=== PATIENT | male | born 1975 ===

== ENCOUNTER → 2022-07-21 10:58 | Outpatient (CLI) | payer OTHER, SELFPAY ==
[2022-07-21 11:35] LABS: COVID19 -Nasal RAPID Negative (Negative)
== END ==
PROVIDERS: PCP Student in an Organized Health Care Education/Training Program; Referring Provider Orthopaedic Surgery Orthopaedic Surgery of the Spine; Visit Provider Orthopaedic Surgery Orthopaedic Surgery of the Spine
DX: Z20.822 Contact with and (suspected) exposure to COVID-19 (principal)
CPT/HCPCS: 87635; C9803

== ENCOUNTER 2022-07-24 10:20 | Inpatient (IN) | payer OTHER, SELFPAY ==
[2022-07-19 11:59] VITALS: BMI 34.7
[2022-07-24] VITALS (12 sets, daily range): BP systolic 117–161; BP diastolic 72–96; PULSE 67–106; RESP 9–20; TEMP 35.4–36.5; O2SAT 64–100; BMI 34.7
[2022-07-24] MEDS: LACTATED RINGERS 1,000 ML 42 ML IV ×2 (11:26→14:19)
--- NOTE | 2022-07-24 12:19 | PM.PREOP ---
Pre-operative Note COVID-19 COVID-19 status: Negative Result date/Date tested (Pos, Neg/Pending): 07/23/22 Criteria for continued procedure: Expected advancement of disease process, Possibility delay results in more complex future surgery or treatment, Increased loss of function, Continuing or worsening of significant or severe pain, Deterioration of the patient's condition or overall health and Delay expected to result in less-positive ultimate med/surg outcome Interval Note History & Physical reviewed/Exam performed by Physician: Yes Changes to H&P: No
[2022-07-24] MEDS: CEFAZOLIN 2 GM/100 ML PREMIX 100 ML IV ×2 (13:10→23:26)
--- NOTE | 2022-07-24 13:47 | SUR.OPER ---
Prone on spine table, head in foam head support, padded chest and pelvic supports, gel pad at knees, lower legs supported by pillows; nipples, genitalia and toes free of pressure, gel pad placed between heels, arms secured on foam padded arm boards at <90 degrees abduction. Tape over blanket at thigh secured to table.
[2022-07-24] MEDS: BUPIVACAINE 0.25% (PF) 60 ML, EPINEPHrine 0.3 MG INJ (14:24)
[2022-07-24] MEDS: BUPIVACAINE LIPOSOME 266 MG/20 ML VIAL INJ (15:19)
--- NOTE | 2022-07-24 15:32 | DI.RAD.S_ITS ---
PROCEDURE: XR LUMBAR SPINE 2-3V INDICATIONS: L5-S1 TLIF TECHNIQUE: 2 intraoperative fluoroscopic images obtained. COMPARISON: None. FINDINGS: Two intraoperative fluoroscopic images obtained from L5-S1 fusion. IMPRESSION: Intraprocedural fluoroscopy was provided for guidance and anatomical localization. Please see the procedure report for further details. Dictated by: Kyaw King M.D. on 07/24/2022 at 17:04 Approved by: Kyaw King M.D. on 07/24/2022 at 17:05
--- NOTE | 2022-07-24 15:33 | P.OP_ITS ---
Operative Date/Time/Diagnoses Date of procedure: 07/24/22 Time of procedure: 13:00 Pre-op diagnosis: 1. L5-S1 spondylolisthesis 2. L5-S1 spinal stenosis with radiculopathy Post-op diagnosis: same Procedure & Clinicians Procedure: 1. L5-S1 Postero-lateral and posterior interbody fusion 2. L5-S1 interbody cage placement. 3. L5-S1 decompressive laminectomy with bilateral facetecomies 4. L5-S1 Posterior non-segmental instrumentation 5. [place] of bone marrow from iliac crest 6. Utilization of microsurgical technique and operating microscope Same procedure as scheduled: Yes Indications: Patient has been having chronic back pain and worsening lumbar radiculopathy. Patient failed multiple conservative management with worsening pain weakness and numbness in his lower extremity as well as severe daily constant back pain. Patient has been having difficulty performing activity of daily living. After discussing risks benefits of treatment options, patient elected proceed with surgery. Surgeon: Ambreen Cesar Risk Lead: Venita Pennington Click Yes if Unassisted: No Anesthesia Type: General Operative Notes Closure Type: primary Specimen(s): none sent Prosthetic devices, grafts, tissues, transplants, or devices: Globus revolve screws, Rise cage Estimated Blood Loss (mL): 50 Blood products transfused: none Procedure in detail: Patient was seen in the preoperative area. Risks and benefits of the surgery was discussed with the patient. Informed consent was obtained from the patient and placed in the chart. Surgical site was marked. Patient was taken to the operative room. General anesthesia was administered. Prophylactic antibiotic was given to the patient less than 30 min before the incision was made. Patient was placed into a prone position on the Alexander table. Patient's back was then prepped and draped in the sterile fashion. Time-out was performed at this time. Using AP and lateral C-arm imaging the interval between L5-S1 was identified and marked on patient's back. A 2 inch incision 2 in from midline was made on the right side first. The fascia was incised in line with skin incision. Globus MARS retractors was placed inside the incision and docked onto the L5 lamina. Using microsurgical technique and operating microscope, a L5 laminectomy and L5- S1 facetectomy was performed using a Kerrison rongeur. Patient was found have severe neural foraminal stenosis and required a total facetectomy for decompr ession which rendered L5-S1 grossly unstable and required a fusion procedure at the same time. The disc space at L5-S1 was identified. And a total diskectomy was performed at L5-S1 level. The endplates were decorticated using a rasp and shaver. The total diskectomy and decortication was performed at L5-S1 level in order to to accomplish a L5-S1 fusion. The local bone from the laminectomy and facetectomy was saved for local bone grafting. After the total diskectomy and decortication was completed, Trifecta bone graft material was combined with local bone that was harvested earlier. At this time, a separate skin is incision was made over the iliac crest. A Jamshidi needle was inserted into the iliac crest through a separate skin incision. 5 cc of bone marrow aspiration was obtained through the separate skin incision using a Jamshidi needle from the iliac crest. The bone marrow aspiration was combined with local bone and the Trifecta bone grafting material. The bone grafting material was placed into the L5-S1 interbody space along with a expandable cage. The cage was expanded to its maximum height using the torque limiting screwdriver. At this time a mirror image incision was made on the left side. The fascia was incised in line with the skin incision. Globus MARS retractor was inserted and docked onto the L5-S1 posterolateral gutter. Using the power drill, posterior-l ateral decortication was performed at L5-S1 level until bleeding cortical bone was identified. The remaining bone grafting material was placed into the L5-S1 posterior lateral gutter he order to accomplish posterolateral fusion at the L5- S1 level. Using the double C-arm technique, pedicle screws were placed into the L5-S1 pedicles bilaterally. This was done by placing the Jamshidi needle into the pedicles, then placing the guidewires over the Jamshidi needle, and finally placing the cannulated screws over the guidewires bilaterally. After the pedicle screws were placed, 2 titanium rods was locked into the heads of the pedicle screws using locking caps and torque limiting screwdriver. Thready reducers were used to reduce the patient's spondylolisthesis. Near anatomic reduction was accomplished using the hardware and the reduction tool and maintained in a stable position using the hardware placed. After all the hardware was placed, and confirmed with AP and lateral C-arm imaging, the wound was then irrigated with sterile normal saline and packed with Ray-Drake gauze for 3 min to accomplish hemostasis. After the gauze was removed the deep fascia was closed with #1 Vicryl suture. The subcutaneous layer was closed with 2-0 Vicryl. The skin was closed with skin everton. Patient tolerated the procedure well. There were no complications. Complications: none Post-operative Condition: stable Disposition: PACU Plan for aftercare: Admit to inpatient hospital
[2022-07-24] MEDS: OXYCODONE/ACETAMINOPHEN 5/325 TABLET 1 TAB PO (16:18)
[2022-07-24] MEDS: HYDROMORPHONE 0.5 MG INJ IV (18:18)
[2022-07-24] MEDS: hydrOXYzine pamoate 25 MG CAPSULE PO ×2 (18:18→23:24)
[2022-07-24] MEDS: ACETAMINOPHEN 325 MG TABLET 650 MG PO (19:09)
[2022-07-24] MEDS: SENNOSIDES 8.6 MG TABLET 17.2 MG PO (20:32)
[2022-07-24] MEDS: DOCUSATE 100 MG CAPSULE PO (20:32)
[2022-07-24] MEDS: GABAPENTIN 300 MG CAPSULE PO (20:32)
[2022-07-24] MEDS: OXYCODONE IR 5 MG TABLET 10 MG PO ×2 (20:32→23:24)
[2022-07-24] MEDS: methocarbamoL 500 MG TABLET 750 MG PO (20:33)
[2022-07-25 00:15] VITALS: BP 146/85; PULSE 110; RESP 18; TEMP 36.9; O2SAT 95
[2022-07-25] MEDS: hydrOXYzine pamoate 25 MG CAPSULE PO (03:44)
[2022-07-25] MEDS: OXYCODONE IR 5 MG TABLET 10 MG PO ×2 (03:44→08:45)
[2022-07-25 04:16] VITALS: BP 129/88; PULSE 94; RESP 17; TEMP 36.8; O2SAT 98
[2022-07-25] MEDS: CEFAZOLIN 2 GM/100 ML PREMIX 100 ML IV (04:55)
[2022-07-25 07:44] VITALS: BP 150/87; PULSE 88; RESP 18; TEMP 35.9; O2SAT 99
--- NOTE | 2022-07-25 08:00 | P.PN_ITS ---
Subjective Subjective Date Patient Seen: 07/25/22 Time Patient Seen: 08:00 Interval history: Pain is mild. Denies fever or chills. No nausea or vomiting. Exam Vital Signs (past 8 hours): - 07/25/22 00:15 07/25/22 04:16 07/25/22 07:44 Temperature 98.4 F 98.2 F 96.7 F L Pulse Rate 110 H 94 H 88 Respiratory Rate 18 17 18 Blood Pressure 146/85 H 129/88 150/87 H Pulse Oximetry 95 98 99 Oxygen Flow Rate 0 0 0 Oxygen Delivery Method Room Air Oxygen Flow Rate 0 Narrative Exam Narrative: 47-year-old male resting comfortably in bed in no apparent distress. Motor functions intact bilateral lower extremities. Sensation grossly intact to light touch bilateral lower extremities. Const General: cooperative and comfortable Nutritional Appearance: average body habitus Orientation: alert [facility] Medical History Arthritis Congenital single kidney Diverticulosis Episode of syncope (~07/2022) Fatty liver HTN (hypertension) Spinal stenosis Surgical History Hx of colonoscopy Hx of LASIK Social History household members: none Smoking Status: Never smoker alcohol intake: former Assessment & Plan Post-op Postoperative Procedures: Procedures Operation Date: 07/24/22 12:45 Actual Procedure Side Surgeon p L5-S1 TLIF Ambreen Cesar MD Postoperative day: 1 Postoperative status: doing well Postoperative status narrative: Postop day 1 status post L5-S1 posterior lateral and posterior interbody fusion Postoperative plan: routine post-op care Postoperative plan narrative: Multimodal pain management Mobilize with physical therapy, limit bending, twisting, lifting Disposition likely home today or tomorrow after physical therapy. Quality VTE Deep Vein Thrombosis/Pulmonary Embolism Present on Admission: No
--- NOTE | 2022-07-25 08:30 | CM.DANOTE ---
DCP Assessment: PCP confirmed: Luis Fernando Payor confirmed: Chele Pt is a 47 y.o. M who presented to the hospital for a scheduled TLIF surgery with Dr. Cesar. Pt admitted to the acute care floor for further management and evaluation of surgical procedure. DCP met with pt this morning to discuss discharge needs. Pt sitting up in bed eating breakfast. DCP introduced herself and role. Pt lives in [place] and is independent at baseline. Pt emergency contact is pt mother, Laney. Pt states that he is currently unemployed but can get around just fine. Pt states KAYLIN Rosenbaum was in this morning and discussed with the potential to discharge later today. DCP updated white board. Instructed to call. Pt thankful for the discussion. P: Pt to work with PT/OT this morning for a consult. Once medically cleared for discharge, pt to discharge home via family POV. Gabriela Bacon RN/KAREN Discharge Planning/Care Management CM Discharge Assessment Start: 07/25/22 08:29 Freq: Status: Active Protocol: Document 07/25/22 08:29 TIMO (Rec: 07/25/22 08:30 [id number]) Discharge Planning Assessment Assigned Heavy Equipment Plumbing Supervisor Gabriela Bacon RN/KAREN Advance Directives? No History Provided By Patient,Medical Record Prior Living Arrangements House Household Members none Type of transporation used prior to Drives own vehicle admit Independent with ADL's Yes Is patient alert and oriented? Yes Caregiver for Another No Discharge Plan Home Transportation Arrangement Family POV Referrals Initiated None needed Additional Comment At this time. Pt to work with PT/OT to determine baseline level of activity. Whiteboard Updated in Patient Room with Yes name and ext. # of Heavy Equipment Plumbing Supervisor Comment Instructed to call Review Status In Process Please Provide Date Initial DC 07/25/22 Assessment Was Performed Next Review Type Continued Stay Review Pre-Anesthesia Assessment Start: 07/19/22 11:59 Freq: Status: Complete Protocol: Document 07/19/22 11:59 CAB (Rec: 07/19/22 13:48 CAB [id number]) Pre-Anesthesia Assessment PAC Comment Pt saw Cardiology 07/19/22, ECG from visit scanned to record Preferred Name Aravind Patient Information Reviewed Via Phone Assessment Assessment Completed With Patient Diagnostic Results BMP/CMP,CBC,EKG Comment [place] labs/ECG scanned, COVID screen @ 07/21/22 Primary Care Provider Romain Gould Seen Specialist in Last 12 Months Yes Specialist Seen Release Specialist,Orthopedist,Other Comment Neuro @ [facility] Primary Language Mexican Tree Faller Required No Height 167.64 cm Weight 97.522 kg Body Mass Index (BMI) 34.7 Hearing Ability Normal Visual Impairment No Limitations Visual Assist None Dentition Type Teeth, Natural Present Barriers to Learning None Hx Anesthesia Reactions No Hx Family Anesthesia Reaction No Hx Malignant Hyperthermia No Hx Blood Transfusions No Anesthesia Review Requested No Processor Helper No alcohol intake former Smoking Status Never smoker Substance Use Type marijuana Comment Pt advised not to smoke marijuana 24 hours prior to surgery Pain Present Pain Reported Musculoskeletal Symptoms Abnormal Gait,Back Pain,Muscle Weakness,Numbness,Radiating Pain into Limb History of Falling (Recent or History of No ) Patient is completely paralyzed or No completely immobile Mental Status Oriented to own ability Is patient on oxygen? No Does patient have PAGE/SOB No Hx Sleep Apnea No Currently Taking a Beta Harjinder No Can You Climb a Flight of Stairs Without Yes SOB Hx Chest Pain No Hx SOB No Hx Syncope or Dizziness Yes: Single episode of syncope , neuro eval negative Anti-Coagulant Therapy No Has a Release Specialist Yes: Visit 07/19/22 r/t syncopal episode Release Specialist name Dr. Ortega Cardiac Testing No Hx Pacemaker/ICD No Pacemaker Rep Required? No Comment Cardiac record scanned Diet Type At Home Regular dysphagia No Urinary Catheter Present No Hx Urinary Self Catheterization No Diabetes No Hx Drug Resistant Organism No Presence of External or Internal Medical No Devices Have you had any close contact with No someone diagnosed with COVID-19? Received a COVID vaccine? Yes Received all doses? No Marital Status Single Lives With none Prior Living Arrangements House Number of Floors (Floors) Two Floors Support System Parent(s) Does the Patient Have Assistance After Yes: Pt will stay with Mom to Surgery assist withi care at [place] Patient Discharge Plan Description Other Comment Pt advised overnight length of stay per surgeon Feels Safe in Current Environment Yes Been Physically Hurt or Threatened By a No Person in Current Environment Do you have thoughts of harming yourself None or others? Are you currently considering suicide? No Do you have a plan to hurt yourself or No Plan others? Do You Have Any Spiritual Beliefs That No May Affect Your HC Choices? Do You Have Any Cultural Practices That No May Affect Your HC Choices? Comment Atheist Who Can We Speak to About Patient's Care Family, friends Identifying Code for Release of Patient Declines to issue Information Health Care Proxy/Next of Kin Laney Coulter) Health Care Proxy Emergency Contact Name Laney Coulter) Emergency Contact Advance Directives? No Power of High Density Press Operator No PAC Instructions Durable medical equipment, Medications to take/avoid, Nasal antibiotic,No ETOH/ petroleum product on skin DOS, NPO,Pre-surgical wash,Sensory aids,Sturdy shoes/comfortable clothes,Do not bring valuables and remove jewelry
[2022-07-25 08:40] VITALS: BP 150/87
[2022-07-25] MEDS: DOCUSATE 100 MG CAPSULE PO (08:40)
[2022-07-25] MEDS: GABAPENTIN 300 MG CAPSULE PO (08:40)
[2022-07-25] MEDS: lisinopriL 20 MG TABLET 40 MG PO (08:40)
--- NOTE | 2022-07-25 10:12 | PT.IIE ---
Current Diagnoses Spondylolisthesis, lumbosacral region (07/24/22) Spinal stenosis, lumbosacral region (07/24/22) Surgery Performed Operation Date: 07/24/22 12:45 Actual Procedures p L5-S1 TLIF - Ambreen Cesar MD Surgical History (Last Reviewed 07/25/22 @ 11:02 by Joss Rosenbaum PA-C) Hx of colonoscopy Hx of LASIK Medical History (Last Reviewed 07/25/22 @ 11:02 by Joss Rosenbaum PA-C) Arthritis Congenital single kidney Diverticulosis Episode of syncope (~07/2022) Fatty liver HTN (hypertension) Spinal stenosis Physical Therapy Inpatient Evaluation/Re-Eval M1 PT/OT-IP Prior Functional Status Start: 07/25/22 11:51 Freq: NEEDED Status: Active Protocol: Document 07/25/22 10:12 AB (Rec: 07/25/22 12:02 AB [id number]) Medical Review Prior Functional Status Medical History Reviewed Yes Communication able to make needs known Mobility and Gait pt stated that he is independent with all mobilities and ambulation without AD Social History Household Members none Living Arrangements House Number of Floors (Floors) One Floor Number of Stairs To Enter/Railing? pt plans to go home to his mother's house: home set up info is regarding pt's mother' s house 2 steps L rail ascending to enter the house Home Environment Standard Height Toilet,Tub/ Shower Home Equipment Quad Cane,Straight Cane Employment Status Unemployed M2 PT-IP Current Condition Start: 07/25/22 11:51 Freq: NEEDED Status: Active Protocol: Document 07/25/22 10:12 AB (Rec: 07/25/22 12:02 AB [id number]) Physical Therapy Current Condition Current Condition Evaluation Date 07/25/22 Treatment Diagnosis s/p L5S1 fusion; difficulty in walking Onset Date 07/24/22 M3 PT-IP Subjective Start: 07/25/22 11:51 Freq: NEEDED Status: Active Protocol: Document 07/25/22 10:12 AB (Rec: 07/25/22 12:02 AB [id number]) Subjective Physical Therapy Visit Type Type Initial Evaluation Visit Start Time 10:12 Visit Stop Time 10:50 Total Visit Minutes 38 Number of AIRCRAFT LAUNCH AND RECOVERY TECHNICIAN Visits 0 Physical Therapy Visit Comments Patient Comments agreeable to do PT Therapy Pain Assessment Pain When Pain Assessed At Rest Pain Present Pain Present Pain Reported Location Back Intensity 6 Scale Used Numeric (0 - 10) Pain Behaviors Guarding Pain Management Techniques Apply Cold,Modification of Treatment,Re-positioning, Timing of Activity with Medications M4 PT-IP Mobility and Gait Start: 07/25/22 11:51 Freq: NEEDED Status: Active Protocol: Document 07/25/22 10:12 AB (Rec: 07/25/22 12:02 AB [id number]) PT-Bed Mobility Assessment Rolling Type of Rolling Log Rolling Level of Assist Standby Assistance Supine to Sit Supine to Sit Standby Assistance PT-Transfer Assessment Sit to and From Stand Sit to and from Stand Standby Assistance,1 Person Assistance,Use of Upper Extremities Equipment Transfer Assistive Device Gait Belt,Front Wheeled Walker Orthotic/Prosthetic Devices or Brace: No Transfers Transfer Destination Chair Transfer Technique ambulated Transfer Ability Level of Assist Standby Assistance,1 Person Assistance,Use of Upper Extremities Comments Mobility Comments educated pt regarding back precautions and log roll bed mobility. pt completed supine to sit SBA and cues. completed sit to stand sBA and ambulated to the chair using fWW SBA. educated pt on how to use SPC. completed sit to stand SBA and ambulated towards the stairs using SPC SBA ~ 300 ft. pt completed up/down steps using L rail ascending sBA. pt ambulated back to his room SBA. sat on chair and positioned. call light and table within reach. Gait Assessment Gait Gait Assistance Required: Standby Assistance,1 Person Assist Distance (Feet) 300 Able to Maintain Weight Bearing Status Yes During Gait Assistive Devices Assistive Device Gait Belt,Straight Cane Orthotic/Prosthetic Devices or Brace: No Gait Deviations General Gait Pattern Decreased Stride Length, Decreased Feet Clearance Factors Limiting Gait Function Factors Limiting Gait Function Decreased Activity Tolerance, Decreased Strength,Limited Range of Motion,Pain,Poor Balance Stair Climbing Assessment Evaluation Level of Assist On Stairs Standby Assistance Devices Stair Climbing Assistive Devices Left Railing Technique/Endurance Stair Climbing Direction Ascend and Descend Stair Climbing Technique Step Over Step Number of Steps Climbed 3 Query Text: Stair Climbing Set # Repetitions (reps) 1 PT-Balance Assessment Sitting Balance and Reactions Static Sitting Balance Ability Normal Dynamic Sitting Balance Ability Normal Standing Balance and Reactions Static Standing Balance Ability Good Dynamic Standing Balance Ability Fair Device Used SPC M5 PT-IP Objective Assessments Start: 07/25/22 11:51 Freq: NEEDED Status: Active Protocol: Document 07/25/22 10:12 AB (Rec: 07/25/22 12:02 AB [id number]) Orientation Orientation/Cognition Level of Alertness Alert Orientation Name,Place,Situation Language Function Ability No Deficits Noted Safety Awareness Understands Safety Issues Memory Description No Deficits Noted Gross Range of Motion Lower Extremity ROM Assessment Within Functional Limits Strength Lower Extremity Strength Assessment Within Functional Limits Coordination Assessment Gross Coordination Gross Coordination WNL Sensation Assessment Sensation Gross Sensation WNL Muscle Tone Muscle Tone WNL Yes M6 PT-IP Treatment Start: 07/25/22 11:51 Freq: NEEDED Status: Active Protocol: Document 07/25/22 10:12 AB (Rec: 07/25/22 12:02 AB [email or web address]) Physical Therapy Treatment Education Education Provided Precautions,Weight Bearing Status,Post-Op Packet,Safety M7 PT-IP Assessment and Plan Start: 07/25/22 11:51 Freq: NEEDED Status: Active Protocol: Document 07/25/22 10:12 AB (Rec: 07/25/22 12:02 AB [email or web address]) PT Summary Assessment and Plan Potential Rehabilitation Potential Good Status of Condition at Evaluation Stable Summary Impairments Pain,ROM,Strength,Balance, Cognition,Bed Mobility, Transfers,Gait,Activity Tolerance Assessment Summary pt requiring SBA with mobility using FWW and plans to go to his mother's house upon d/c and pt's mother will assist pt as needed. pt may go home when medically stable. informed pt to use a FWW for outdoor mobility and agreed. stated that his mother will borrow from the [facility]. Goals Bed Mobility Goal Independent Transfer Goal Independent,Cane Gait Goal Independent,Cane Gait Distance 350 Other Goals up/down 2 steps L rail ascending mod I Days to Meet Goals 3 Frequency of Treatment Frequency Of Treatment Twice a Day Treatment Plan Physical Therapy Treatment Plan Bed Mobility Training,Transfer Training,Gait Training, Therapeutic Exercise,Balance Retraining,Post Op Education, Discharge Planning,Hot or Cold Pack,Neuromuscular Re-ed, Coordination Retraining,Manual Therapy Recommendations To Nursing Amount of Assist Needed Standby Assistance Discharge Recommendations PT Discharge Recommendations Home with Assistance Transportation Needs at Discharge Private Vehicle
--- NOTE | 2022-07-25 11:01 | P.DS_ITS ---
History of Present Illness History of Present Illness Date Patient Seen: 07/25/22 Time Patient Seen: 11:01 Chief complaint: Back pain Narrative: See progress note Discharge Providers Provider Date of admission: 07/24/22 10:20 Discharge Date: 07/25/22 Primary care physician: Romain Gould DO Consults: 07/24/22 16:52 Consult to Occupational Therapy Evaluate & Treat Comment: Physician Instructions: Evaluate and treat Consult to Physical Therapy Evaluate & Treat Comment: Physician Instructions: Evaluate and Treat Discharge provider: Joss Rosenbaum PA-C Summary Hospital Course Discharge Diagnosis: 1. L5-S1 spondylolisthesis 2. L5-S1 spinal stenosis with radiculopathy Hospital Course: 1. L5-S1 Postero-lateral and posterior interbody fusion 2. L5-S1 interbody cage placement. 3. L5-S1 decompressive laminectomy with bilateral facetecomies 4. L5-S1 Posterior non-segmental instrumentation 5. [place] of bone marrow from iliac crest 6. Utilization of microsurgical technique and operating microscope Same procedure as scheduled: Yes Indications: Patient has been having chronic back pain and worsening lumbar radiculopathy. Patient failed multiple conservative management with worsening pain weakness and numbness in his lower extremity as well as severe daily constant back pain.? Patient has been having difficulty performing activity of daily living.? After discussing risks benefits of treatment options, patient elected proceed with surgery. Surgeon: Ambreen Cesar Land Acquisition Analyst: Venita Pennington Click Yes if Unassisted: No Anesthesia Type: General Operative Notes Closure Type: primary Specimen(s): none sent Prosthetic devices, grafts, tissues, transplants, or devices: Globus revolve screws, Rise cage Estimated Blood Loss (mL): 50 Patient admitted to the hospital for the above-mentioned procedure. Patient consented to the same. Patient underwent lumbar fusion July 24, 2022. Patient back in his room recovering well as in stable condition. Patient will be discharged home today in stable condition. Status at Discharge Cognitive/behavioral status at discharge: at baseline, oriented Functional status at discharge: uses cane/walker Overall status at discharge: patient is progressing back to baseline Time Spent with Patient Time spent: Less than 30 minutes Exam Vital Signs (past 8 hours): - 07/25/22 04:16 07/25/22 07:44 07/25/22 08:40 Temperature 98.2 F 96.7 F L Pulse Rate 94 H 88 Respiratory Rate 17 18 Blood Pressure 129/88 150/87 H 150/87 H Pulse Oximetry 98 99 Oxygen Flow Rate 0 0 Oxygen Delivery Method Room Air Oxygen Flow Rate 0 Narrative Exam Narrative: See progress note PFSH Medical History Arthritis Congenital single kidney Diverticulosis Episode of syncope (~07/2022) Fatty liver HTN (hypertension) Spinal stenosis Surgical History Hx of colonoscopy Hx of LASIK Social History household members: none Smoking Status: Never smoker alcohol intake: former Discharge Assessment & Plan Assessment and Plan Assessment: Patient progressing as expected Plan of Treatment: Discharge home today in stable condition Discharge Plan Discharge Plan Patient Disposition: Home Discharge orders & Medications Prescriptions: New acetaminophen 325 mg Tablet 650 mg PO Q6HR PRN (Reason: Pain, Mild (1-3)) Qty: 60 0RF docusate sodium 100 mg Capsule 100 mg PO BID Qty: 20 0RF oxycodone 5 mg Tablet 10 mg PO Q3HR PRN (Reason: Pain, Severe (7-10)) Qty: 40 0RF Continued methocarbamol 750 mg Tablet 750 mg PO BEDTIME gabapentin 300 mg Capsule 300 mg PO TID lisinopril 40 mg Tablet 40 mg PO DAILY Follow up/Referrals: Ambreen Cesar MD [Physician] - As previously scheduled (Follow up with Venita Pennington PA-C, on 08/03/2022 @ 3:00 pm at [facility] office in [place].) Romain Gould DO [Primary Care Provider] - Diet/Activity/Treatments Diet: Diet as Tolerated Activity: No deep bending or twisting at the waist. No lifting more than 10 pounds. Cold/Heat Therapy: Heating pad to back as needed for pain. Skin/Wound/Dressing Care Report to your healthcare provider any signs of infection, such as:: chills, fever, night sweats, unusual drainage and unusual redness Dressing: May shower; keep dressing as dry as possible. May remove dressing and replace with clean, dry gauze if it becomes wet inside. No bathing or otherwise soaking incisions. Do not apply any creams, lotions, or ointments to incisions. Visit Report/Discharge Packet Instructions: DI for Prescription Opioid Use, DI for Transforaminal Lumbar Interbody Fusion Stand Alone Forms: Surgery Discharge Discharge Data Primary Care Provider: Romain Gould VTE Deep Vein Thrombosis/Pulmonary Embolism Present on Admission: No
--- NOTE | 2022-07-25 11:35 | PC.NURSE ---
Pt is ready for discharge home with Parent. Has been cleared by PT but is waiting for his ride and to work with OT. IV removed. Went over d/c instructions with Pt -discussed d/c meds, time of last dose, reviewed stroke education, reviewed back precautions, reminded Pt to limit [id number] twisting, no driving while taking narcotics, drink plenty of fluids to prevent constipation or dehydration, reviewed s/s of infection, reminded Pt to not exceed 3000mg of Acetaminophen in 24 hours, and to follow up as directed. Pt denied further questions and will be discharged out via w/c by [facility] to [facility] with his mother and all belongings.
--- NOTE | 2022-07-25 11:57 | OT.IP.EVAL ---
Current Diagnoses Spondylolisthesis, lumbosacral region (07/24/22) Spinal stenosis, lumbosacral region (07/24/22) Surgery Performed Operation Date: 07/24/22 12:45 Actual Procedures p L5-S1 TLIF - Ambreen Cesar MD Past Medical History (Last Reviewed 07/25/22 @ 11:02 by Joss Rosenbaum PA-C) Arthritis Congenital single kidney Diverticulosis Episode of syncope (~07/2022) Fatty liver HTN (hypertension) Spinal stenosis Surgical History (Last Reviewed 07/25/22 @ 11:02 by Joss Rosenbaum PA-C) Hx of colonoscopy Hx of LASIK Occupational Therapy Inpatient Evaluation/Re-Eval M1 PT/OT-IP Prior Functional Status Start: 07/25/22 11:51 Freq: NEEDED Status: Discharge Protocol: Document 07/25/22 10:12 AB (Rec: 07/25/22 12:02 AB [id number]) Medical Review Prior Functional Status Medical History Reviewed Yes Communication able to make needs known Mobility and Gait pt stated that he is independent with all mobilities and ambulation without AD Social History Household Members none Living Arrangements House Number of Floors (Floors) One Floor Number of Stairs To Enter/Railing? pt plans to go home to his mother's house: home set up info is regarding pt's mother' s house 2 steps L rail ascending to enter the house Home Environment Standard Height Toilet,Tub/ Shower Home Equipment Quad Cane,Straight Cane Employment Status Unemployed M1 PT/OT-IP Prior Functional Status Start: 07/25/22 13:38 Freq: NEEDED Status: Active Protocol: Document 07/25/22 11:57 [facility] (Rec: 07/25/22 13:54 [facility] [id number]) Medical Review Prior Functional Status Medical History Reviewed Yes Communication able to make needs known Mobility and Gait pt stated that he is independent with all mobilities and ambulation without AD Pt states would have pain after walking 4 blocks and needing to stop. Activities of Daily Living and IADL's Pt states able to do his ADL needs. Social History Household Members none Living Arrangements House Number of Floors (Floors) One Floor Number of Stairs To Enter/Railing? pt plans to go home to his mother's house: home set up info is regarding pt's mother' s house 2 steps L rail ascending to enter the house Home Environment Standard Height Toilet,Tub/ Shower Home Equipment Quad Cane,Straight Cane Employment Status Unemployed M2 OT-IP Current Condition Start: 07/25/22 13:38 Freq: Status: Active Protocol: Document 07/25/22 11:57 [facility] (Rec: 07/25/22 13:54 [facility] [id number]) Occupational Therapy Current Condition Current Condition Evaluation Date 07/25/22 Treatment Diagnosis S/p L5-S1 TLIF Diagnosis Onset Date 07/24/22 M3 OT- IP Subjective and Pain Start: 07/25/22 13:38 Freq: Status: Active Protocol: Document 07/25/22 11:57 [facility] (Rec: 07/25/22 13:54 [facility] [id number]) OT- Subjective Occupational Therapy Visit Type Type Initial Evaluation Visit Start Time 11:38 Visit Stop Time 11:57 Total Visit Minutes 19 Occupational Therapy Visit Comments Patient Comments Pt agreed to get dressed. Patient/Caregiver Goals To go home. OT Pain Assessment Pain When Pain Assessed At Rest Pain Present Pain Present Pain Reported Location Back Intensity 4 Scale Used Numeric (0 - 10) M4 OT- IP ADL's Start: 07/25/22 13:38 Freq: Status: Active Protocol: Document 07/25/22 11:57 [facility] (Rec: 07/25/22 13:54 [facility] [id number]) OT [id number] Comments OT Self-Feeding Comments Not at meal time. OT ADL-Grooming General Evaluation Grooming Ability Standby Assistance Areas Needing Assistance Retrieving/Set-up of Grooming Items OT ADL-Oral Care General Eval Oral Care Ability Independent Comments Oral Care Comments Pt needing initial education to hinge at his hips to spit to best follow his back precautions. OT ADL-Dressing General Eval Upper Body Dressing Ability Independent Lower Body Dressing Ability Standby Assistance Comments OT Dressing Comments Pt able to use socks aid to assist for his socks, in which pt will benefit from getting a noc technician and sock aid to assist with his LB dressing needs. OT ADL-Toileting Comments OT Toileting Comments Pt able to sit on the toilet and to reach appropriately to be able to wipe. OT ADL-Bathing Comments OT Bathing Comments Pt states not wanting to have his mom be present for his shower and therefore shower chair, hand held shower spray and long handled brush would help with his independence for showering needs. M5 OT- IP IADL's Start: 07/25/22 13:38 Freq: Status: Active Protocol: Document 07/25/22 11:57 [facility] (Rec: 07/25/22 13:54 [facility] [id number]) OT-Instrumental Activities of Daily Living Home Safety Awareness Awareness of Need for Assistance at Home Good Awareness Home Safety Comments Pt mother to assist with his IADl needs. M6 OT- IP Functional Cognition Start: 07/25/22 13:38 Freq: Status: Active Protocol: Document 07/25/22 11:57 [facility] (Rec: 07/25/22 13:54 [facility] [id number]) Cognitive Factors Limiting Selfcare Function Cognitive Ability Level of Alertness Alert Patient Orientation Name,Age,Birthday,Month,Date, Year,Day of Week,Place, Situation Attention Span Ability Capable of Focused Attention, Capable of Sustained Attention Ability to Follow Commands Able to Follow Multi-Step Commands Cognitive Comments Cognitive Assessment Comments Pt intact and able to follow commands for back precautions for ADl and mobility needs. M7 OT- IP Mobility and Balance Start: 07/25/22 13:38 Freq: Status: Active Protocol: Document 07/25/22 11:57 [facility] (Rec: 07/25/22 13:54 [facility] [id number]) OT-Transfer Assessment Sit to and From Stand Sit to and from Stand Standby Assistance Technique Transfer Destination Chair,Toilet Devices Transfer Assistive Devices Gait Belt,Front Wheeled Walker Comments Mobility Comments Pt wanting to use the FWW for mobility needs when asked. Pt states to have his mom get his one from the [employer]. OT- Balance Assessment Sitting Balance and Reactions Static Sitting Balance Ability Normal Dynamic Sitting Balance Ability Good Standing Balance and Reactions Static Standing Balance Ability Good Dynamic Standing Balance Ability Good M8 OT- IP Objective Assessments Start: 07/25/22 13:38 Freq: Status: Active Protocol: Document 07/25/22 11:57 [facility] (Rec: 07/25/22 13:54 [facility] [id number]) OT-Muscle Tone Assessment Muscle Tone WNL Yes M9 OT- IP Assessment and Plan Start: 07/25/22 13:38 Freq: Status: Active Protocol: Document 07/25/22 11:57 [facility] (Rec: 07/25/22 13:54 [facility] [id number]) OT Summary Assessment and Plan Potential Rehabilitation Potential Good Analytic Complexity at Evaluation Low Summary OT Impairments Pain,Balance,Functional Mobility,Dressing,Bathing, Shower Transfers Progress Towards Goals Progressing Toward Goals Assessment Summary Pt low complexity and main barriers are pain, needing assist for LB dressing in not using LB dressing equipment in order to best follow his back precautions. Pt to go home to his mom's house when medically stable. Pt states prefers the FWW for now and plans on having his mom pick one up at the [employer]. Goals Dressing Goal Independent Toileting Goal Independent Bathing Goal Independent Toilet Transfer Goal Independent Shower Transfer Goal Independent Days to Meet Goals 4 Frequency of Treatment Frequency Of Treatment Once a Day Treatment Plan OT Treatment Plan ADL Training,Functional Mobility,Patient/Family Education,Discharge Planning Discharge Recommendations OT Discharge Recommendations Home with Assistance Home Equipment Needs shower chair, LB dressing equipment, FWW-pt preferring to use at this time on OT eval . Transportation Needs at Discharge Private Vehicle
== END 2022-07-25 12:41 | disposition home or self-care (01) | DRG 455 ==
PROVIDERS: Admitting Provider Orthopaedic Surgery Orthopaedic Surgery of the Spine; PCP Student in an Organized Health Care Education/Training Program; Referring Provider Orthopaedic Surgery Orthopaedic Surgery of the Spine; Visit Provider Orthopaedic Surgery Orthopaedic Surgery of the Spine
PROC: 0SG30AJ Fusion of Lumbosacral Joint with Interbody Fusion Device, Posterior Approach, Anterior Column, Open Approach (ICD-10-PCS; principal; 2022-07-24 12:45)
DX: M43.17 Spondylolisthesis, lumbosacral region (principal); M48.07 Spinal stenosis, lumbosacral region; I10 Essential (primary) hypertension; Z90.5 Acquired absence of kidney; Z20.822 Contact with and (suspected) exposure to COVID-19
CPT/HCPCS: 72100; 76000; 97116; 97161; 97165; 97535; C1713; C9290; J0171; J0690; J1100; J1170; J2250; J2405; J2704; J3010